=== PATIENT | male | born 1965 | race Caucasian/White ===

== ENCOUNTER → 2018-08-28 | Outpatient (CLI) | payer BC ==
[~2018-08-28] MED LIST: HYDR12.5C PO; PRILOSEC20 M1 PO; ZYRTEC10 MG PO
[2018-08-28 09:23] LABS: HEMATOCRIT 49.4 % (42.0-52.0); HEMOGLOBIN 16.3 g/dl (14.0-18.0); MEAN CELL VOLUME 91.5 fl (80.0-94.0); MEAN CORPUSCULAR HGB 30.2 pg (27.0-31.0); MEAN PLATELET VOLUME 8.6 fl (9.6-12.3); RED BLOOD COUNT 5.4 10*6/uL (4.50-5.90); RED CELL DISTRI WIDTH 13.2 % (0-14.5); WHITE BLOOD COUNT 6.2 10*3/uL (4.8-10.8)
[2018-08-28 09:42] LABS: ALBUMIN 4.2 gm/dl (3.1-4.5); BUN 17 mg/dl (7-24); CHLORIDE 107 mmol/L (98-107); CHOLESTEROL 177 mg/dL (<200); CREATININE 1.11 mg/dL (0.70-1.30); POTASSIUM 4.1 mmol/L (3.5-5.1); SGOT/AST 21 IU/L (3-35); SGPT/ALT 37 U/L (12-78); SODIUM 141 mmol/L (136-145); TRIGLYCERIDES 142 mg/dl (<150); VLDL CHOLESTEROL 28 mg/dL (6-40)
[2018-08-28 09:52] LABS: ALKALINE PHOSPHATASE 83 U/L (45-117); CPK 174 U/L (39-308); HDL CHOLESTEROL 48 mg/dl (40-60); LDL CHOLESTEROL 101 mg/dL (9-159); THYROID STIM HORMONE (HS) 0.469 uIU/ml (0.358-4.75); TOTAL PROTEIN 7.7 gm/dL (6.4-8.2)
[2018-08-29 08:14] LABS: HEPATITIS B SURFACE AG Negative (Negative); HEPATITIS C VIRUS ANTIBODY <0.1 s/co (0.0-0.9); RHEUMATOID ARTHRITIS FACTOR <10.0 IU/mL (0.0-13.9)
== END | disposition home or self-care (01) ==
LOC: LAB 08:38
PROVIDERS: Family Medicine
DX: E78.00 Pure hypercholesterolemia, unspecified (principal); E55.9 Vitamin D deficiency, unspecified; M79.10 Myalgia, unspecified site; M25.50 Pain in unspecified joint; R53.1 Weakness

== ENCOUNTER → 2019-04-22 | Outpatient (CLI) | payer BC | END | disposition home or self-care (01) | LOC: MRI 13:32 | DX: M54.2 Cervicalgia (principal); R20.2 Paresthesia of skin; R53.1 Weakness ==

== ENCOUNTER → 2020-12-11 | Outpatient (CLI) | payer BC ==
[2020-12-11 07:14] LABS: HEMATOCRIT 50.7 % (42.0-52.0); MEAN CELL VOLUME 90.1 fl (80.0-94.0); MEAN CORPUSCULAR HGB 30.2 pg (27.0-31.0); MEAN CORPUSCULAR HGB CONC 33.5 g/dl (33.0-37.0); MEAN PLATELET VOLUME 8.6 fl (9.6-12.3); RED BLOOD COUNT 5.63 10*6/uL (4.50-5.90); WHITE BLOOD COUNT 7.8 10*3/uL (4.8-10.8)
[2020-12-11 07:51] LABS: ALKALINE PHOSPHATASE 78 U/L (45-117); BUN 16 mg/dl (7-24); CHLORIDE 106 mmol/L (98-107); CHOLESTEROL 224 mg/dL (<200); CREATININE 1.06 mg/dL (0.70-1.30); GAMMA GLUTAMYL TRANSPEPTIDASE 64 U/L (15-85); LDL CHOLESTEROL 148 mg/dL (9-159); POTASSIUM 4.1 mmol/L (3.5-5.1); SGOT/AST 76 IU/L (3-35); SGPT/ALT 132 U/L (12-78); SODIUM 139 mmol/L (136-145); TOTAL PROTEIN 7.7 gm/dL (6.4-8.2); TRIGLYCERIDES 152 mg/dl (<150)
[2020-12-11 09:26] LABS: VITAMIN D, 25-HYDROXY 29.7 ng/mL (30-100)
[2020-12-12 08:08] LABS: HEP B CORE AB, IGM Negative (Negative); HEPATITIS B SURFACE AG Negative (Negative); HEPATITIS C VIRUS ANTIBODY <0.1 s/co (0.0-0.9)
== END | disposition home or self-care (01) ==
LOC: LAB 06:53
PROVIDERS: ATTEND Family Medicine
DX: I10 Essential (primary) hypertension (principal); E55.9 Vitamin D deficiency, unspecified; R53.83 Other fatigue; Z79.899 Other long term (current) drug therapy; Z12.5 Encounter for screening for malignant neoplasm of prostate; Z00.01 Encounter for general adult medical examination with abnormal findings; Z83.79 Family history of other diseases of the digestive system

== ENCOUNTER → 2021-02-15 | Outpatient (CLI) | payer BC | END | disposition home or self-care (01) | LOC: US 01-13 09:00 | PROVIDERS: ATTEND Family Medicine | DX: K76.0 Fatty (change of) liver, not elsewhere classified (principal) ==

== ENCOUNTER → 2022-06-24 | Outpatient (CLI) | payer BC ==
[2022-06-24 07:41] LABS: HEMATOCRIT 50.4 % (42.0-52.0); MEAN CELL VOLUME 88.1 fl (80.0-94.0); MEAN CORPUSCULAR HGB 29.7 pg (27.0-31.0); MEAN CORPUSCULAR HGB CONC 33.7 g/dl (33.0-37.0); MEAN PLATELET VOLUME 8.4 fl (9.6-12.3); RED BLOOD COUNT 5.72 10*6/uL (4.50-5.90); WHITE BLOOD COUNT 5.5 10*3/uL (4.8-10.8)
[2022-06-24 09:07] LABS: ALKALINE PHOSPHATASE 82 U/L (46-116); BUN 16 mg/dl (9-23); CHLORIDE 104 mmol/L (98-107); CHOLESTEROL 167 mg/dL (<200); LDL CHOLESTEROL 113 mg/dL (9-159); POTASSIUM 4.6 mmol/L (3.4-5.1); SGPT/ALT 167 U/L (10-49); TOTAL PROTEIN 7.5 gm/dL (6.0-8.0); TRIGLYCERIDES 109 mg/dl (<150)
== END | disposition home or self-care (01) ==
LOC: LAB 07:27
PROVIDERS: ATTEND Family Medicine
DX: Z00.00 Encounter for general adult medical examination without abnormal findings (principal); I10 Essential (primary) hypertension; E55.9 Vitamin D deficiency, unspecified; R51.9 Headache, unspecified

== ENCOUNTER → 2023-03-03 | Outpatient (CLI) | payer BC ==
[2023-03-03 07:28] LABS: HEMATOCRIT 48.1 % (42.0-52.0); MEAN CELL VOLUME 88.1 fl (80.0-94.0); MEAN CORPUSCULAR HGB 30.6 pg (27.0-31.0); MEAN CORPUSCULAR HGB CONC 34.7 g/dl (33.0-37.0); MEAN PLATELET VOLUME 8.7 fl (9.6-12.3); RED BLOOD COUNT 5.46 10*6/uL (4.50-5.90); RED CELL DISTRI WIDTH 12.6 % (0-14.5)
[2023-03-03 07:57] LABS: ALKALINE PHOSPHATASE 60 U/L (46-116); BUN 13 mg/dl (9-23); CHLORIDE 106 mmol/L (98-107); CHOLESTEROL 186 mg/dL (<200); LDL CHOLESTEROL 119 mg/dL (9-159); POTASSIUM 4.2 mmol/L (3.4-5.1); SGPT/ALT 61 U/L (5-49); TOTAL PROTEIN 7.3 gm/dL (6.0-8.0); TRIGLYCERIDES 105 mg/dl (<150)
[2023-03-03 08:15] LABS: VITAMIN D, 25-HYDROXY 39.8 ng/mL (30-100)
== END | disposition home or self-care (01) ==
LOC: LAB 07:10
PROVIDERS: ATTEND Family Medicine
DX: Z12.5 Encounter for screening for malignant neoplasm of prostate (principal); Z00.00 Encounter for general adult medical examination without abnormal findings; E78.00 Pure hypercholesterolemia, unspecified; E74.00 Glycogen storage disease, unspecified; F41.9 Anxiety disorder, unspecified

== ENCOUNTER → 2023-06-09 | Outpatient (CLI) | payer BC ==
[2023-06-09 08:10] LABS: ALKALINE PHOSPHATASE 63 U/L (46-116); BUN 12 mg/dl (9-23); CHLORIDE 105 mmol/L (98-107); CHOLESTEROL 195 mg/dL (<200); GAMMA GLUTAMYL TRANSPEPTIDASE 53 U/L (0-73); LDL CHOLESTEROL 121 mg/dL (9-159); POTASSIUM 4.3 mmol/L (3.4-5.1); SGPT/ALT 73 U/L (5-49); TOTAL PROTEIN 7.6 gm/dL (6.0-8.0); TRIGLYCERIDES 143 mg/dl (<150)
== END | disposition home or self-care (01) ==
LOC: LAB 07:08
PROVIDERS: ATTEND Family Medicine
DX: E78.00 Pure hypercholesterolemia, unspecified (principal); K76.0 Fatty (change of) liver, not elsewhere classified

== ENCOUNTER → 2023-09-21 | Outpatient (CLI) | payer BC ==
[2023-09-21 08:17] LABS: ALKALINE PHOSPHATASE 75 U/L (46-116); BUN 13 mg/dl (9-23); CHLORIDE 107 mmol/L (98-107); GAMMA GLUTAMYL TRANSPEPTIDASE 39 U/L (0-73); POTASSIUM 3.9 mmol/L (3.4-5.1); SGPT/ALT 27 U/L (5-49); TOTAL PROTEIN 7.1 gm/dL (6.0-8.0)
== END | disposition home or self-care (01) ==
LOC: LAB 07:03
PROVIDERS: ATTEND Family Medicine
DX: K76.0 Fatty (change of) liver, not elsewhere classified (principal); R74.01 Elevation of levels of liver transaminase levels

== ENCOUNTER → 2024-03-15 | Outpatient (CLI) | payer BC ==
[2024-03-15 07:45] LABS: HEMATOCRIT 48.5 % (42.0-52.0); MEAN CORPUSCULAR HGB 30.2 pg (27.0-31.0); MEAN CORPUSCULAR HGB CONC 32.8 g/dl (33.0-37.0); MEAN PLATELET VOLUME 8.1 fl (9.6-12.3); RED BLOOD COUNT 5.27 10*6/uL (4.50-5.90); RED CELL DISTRI WIDTH 12.3 % (0-14.5); WHITE BLOOD COUNT 8.6 10*3/uL (4.8-10.8)
[2024-03-15 07:58] LABS: ALKALINE PHOSPHATASE 93 U/L (46-116); BUN 16 mg/dl (9-23); CHLORIDE 106 mmol/L (98-107); CHOLESTEROL 176 mg/dL (<200); LDL CHOLESTEROL 113 mg/dL (9-159); POTASSIUM 4.5 mmol/L (3.4-5.1); SGPT/ALT 25 U/L (5-49); TOTAL PROTEIN 7.6 gm/dL (6.0-8.0); TRIGLYCERIDES 96 mg/dl (<150)
[2024-03-15 08:20] LABS: VITAMIN D, 25-HYDROXY 32.4 ng/mL (30-100)
== END | disposition home or self-care (01) ==
LOC: LAB 07:14
PROVIDERS: ATTEND Family Medicine
DX: Z12.5 Encounter for screening for malignant neoplasm of prostate (principal); E55.9 Vitamin D deficiency, unspecified; E78.00 Pure hypercholesterolemia, unspecified; J44.9 Chronic obstructive pulmonary disease, unspecified

== ENCOUNTER → 2024-11-12 | Outpatient (CLI) | payer BC | END | disposition home or self-care (01) | LOC: RAD 17:36 | PROVIDERS: ATTEND Family Medicine | DX: M17.0 Bilateral primary osteoarthritis of knee (principal) ==

== ENCOUNTER → 2024-12-13 | Outpatient (CLI) | payer BC ==
[2024-12-13 07:31] LABS: MEAN CELL VOLUME 91.0 fl (80.0-94.0); MEAN CORPUSCULAR HGB 29.9 pg (27.0-31.0); MEAN PLATELET VOLUME 8.4 fl (9.6-12.3); NUCLEATED RED BLOOD CELL 0.0 % (0.0-0.0); NUCLEATED RED BLOOD CELL 0.0 10*3/uL (0.0-0.0); PLATELET COUNT AUTOMATED 235.0 10*3/uL (130-400); RED CELL DISTRI WIDTH 12.9 % (0-14.5)
[2024-12-13 07:59] LABS: BUN 17 mg/dl (9-23); LDL CHOLESTEROL 112 mg/dL (9-159); SGPT/ALT 28 U/L (5-49)
== END | disposition home or self-care (01) ==
LOC: LAB 07:12
PROVIDERS: ATTEND Family Medicine
DX: E78.00 Pure hypercholesterolemia, unspecified (principal); E74.9 Disorder of carbohydrate metabolism, unspecified; I10 Essential (primary) hypertension; R97.20 Elevated prostate specific antigen [PSA]; Z79.899 Other long term (current) drug therapy